=== PATIENT | male | born 1960 | race Caucasian/White ===

== ENCOUNTER 2024-01-09 07:42 | Day surgery (SDC) | payer BC ==
[2024-01-09] MEDS ORDERED: Midazolam 1 MG/ML 2 ML SDV IV ONE (07:43)
[2024-01-09] MEDS ORDERED: Propofol 200 MG/20 ML SDV IV ONE (07:43)
[2024-01-09] MEDS ORDERED: Sodium Chloride 0.9% 10 ML Syringe FLUSH PRN (07:45)
[2024-01-09] MEDS: Lactated Ringers 1,000 ML IV SCH (08:20)
[2024-01-09] MEDS: Simethicone Drops 40 MG/0.6 ML 30 ML Bottle ONE (08:56)
== END 2024-01-09 10:05 | disposition home or self-care (01) ==
LOC: FB.SDS 07:42
PROVIDERS: ATTEND Surgery
DX: Z12.11 Encounter for screening for malignant neoplasm of colon (principal); K64.1 Second degree hemorrhoids; I10 Essential (primary) hypertension; E66.9 Obesity, unspecified; Z68.34 Body mass index [BMI] 34.0-34.9, adult; Z79.899 Other long term (current) drug therapy
CPT/HCPCS: 45378; A9270; J2250; J2704; J7120; 00812